=== PATIENT | male | born 1960 | race Caucasian/White ===

== ENCOUNTER 2017-04-14 08:31 | Day surgery (SDC) | payer OTHER ==
[~2017-04-14] VITALS: Ht 172.7 cm
--- NOTE | 2017-04-15 08:09 | OR ---
ADMIT: 04/14/2017 RM/LOC: [facility] MR#: [id number] [address] [id number] ALVIN LEWIS [address] [place] [address] Operative/Delivery Room Report SEX: M AGE: 56 : 1960 SURGERY DATE: 04/14/2017 SURGEON: Mallory Duenas MD ACCOUNTS SUPERVISOR: None. PREOPERATIVE DIAGNOSES: 1. Lumbar spondylosis. 2. Lumbago. POSTOPERATIVE DIAGNOSES: 1. Lumbar spondylosis. 2. Lumbago. PROCEDURE PERFORMED: Bilateral lumbar medial branch block at L3, L4, L5, and S1 levels. INDICATION FOR THE PROCEDURE: The patient is a pleasant gentleman with history of chronic low back pain secondary to above-mentioned diagnoses comes here for planned lumbar medial branch block. ANESTHESIA: Local without sedation. ESTIMATED BLOOD LOSS: Zero. COMPLICATIONS: None immediately evident. DESCRIPTION OF THE PROCEDURE: After the patient was seen in the preoperative area, vital signs were taken. Prior to the procedure, the risks, benefits, and alternative therapies were discussed at length. The patient's consent was obtained and updated. The patient was taken to the fluoroscopy suite and placed on the fluoroscopy table in a prone position. Pressure points were padded to comfort. Monitors were applied and a timeout performed. The lumbosacral area was prepped and draped sterilely using ChloraPrep. C-arm fluoroscopy was then brought in to identify the junction of the pedicular and transverse process. Then lidocaine 1% was applied; approximately 1 mL was used to anesthetize the skin and underlying subcutaneous tissue at bilateral L3, L4, L5 and S1 levels. At each level, a 3.5 inch 22-gauge spinal needle was used. The needle was then advanced to make contact with the superior articular facet at each level, and then needle was placed between the junction ADMIT: 04/14/2017 RM/LOC: [facility] MR#: [id number] [address] [facility] [address] [place] [id number] ALVIN LEWIS [address] [place] [address] Operative/Delivery Room Report SEX: M AGE: 56 : 1960 of the superior articular facet and the transfer process. Then the patient received 0.5 mL of 0.25% Marcaine with approximately 40 mg of Depo-Medrol at each level. The patient had reproduction of his typical pain at each level. Then we moved on to the left side, we did the same procedure. The patient tolerated the procedure well. The patient was brought to the PACU where he recovered nicely without any complication. PLAN: The patient was examined after 20 minutes and had 80% reduction of pain. Range of motion, mainly extension, went from 10 degrees of extension to 20 degrees of extension. Discharge instructions were given. Followup as scheduled. The patient was discharged with a gravel truck driver. Mallory Duenas MD/ laurence JOB #: [id number] CC: Mallory Duenas, Attending Physician Daryl Kaufman, Family Physician
== END 2017-04-14 09:43 | disposition home or self-care (01) ==
LOC: SSS 08:31
DX: G89.29 Other chronic pain (principal); M47.816 Spondylosis without myelopathy or radiculopathy, lumbar region; M48.06 Spinal stenosis, lumbar region; Z98.890 Other specified postprocedural states; Z88.5 Allergy status to narcotic agent; Z88.6 Allergy status to analgesic agent; Z79.1 Long term (current) use of non-steroidal anti-inflammatories (NSAID); Z79.899 Other long term (current) drug therapy

== ENCOUNTER 2017-04-21 09:24 | Day surgery (SDC) | payer OTHER ==
[~2017-04-21] VITALS: Ht 172.7 cm; Wt 95.0 kg
--- NOTE | 2017-04-22 08:22 | OR ---
ADMIT: 04/21/2017 RM/LOC: [facility] MR#: [id number] [address] [address] ALVIN LEWIS [address] [place] [address] Operative/Delivery Room Report SEX: M AGE: 56 : 1960 SURGERY DATE: 04/21/2017 SURGEON: Mallory Duenas MD VETERINARY MEDICINE SCIENTIST: None. PREOPERATIVE DIAGNOSES: 1. Lumbar spondylosis. 2. Lumbago. POSTOPERATIVE DIAGNOSES: 1. Lumbar spondylosis. 2. Lumbago. PROCEDURE PERFORMED: Bilateral lumbar medial branch block at L3, L4, L5, and S1 levels. INDICATION FOR THE PROCEDURE: The patient is a pleasant gentleman with history of chronic low back pain secondary to above-mentioned diagnoses, comes here for planned lumbar medial branch block. ANESTHESIA: Local without sedation. ESTIMATED BLOOD LOSS: Zero. COMPLICATIONS: None immediately evident. DESCRIPTION OF THE PROCEDURE: After the patient was seen in the preoperative area, vital signs were taken. Prior to the procedure, the risks, benefits, and alternative therapies were discussed at length. The patient's consent was obtained and updated. The patient was taken to the fluoroscopy suite and placed on the fluoroscopy table in a prone position. Pressure points were padded to comfort. Monitors were applied and a timeout performed. The lumbosacral area was prepped and draped sterilely using ChloraPrep. C-arm fluoroscopy was then brought in to identify the junction of the pedicular and transverse process. Then lidocaine 1% was applied; approximately 1 mL was used to anesthetize the skin and underlying subcutaneous tissue at bilateral L3, L4, L5 and S1 levels. At each level, a 3.5 inch 22-gauge spinal needle was used. The needle was then advanced to make contact with the superior articular facet at each level, and then needle was placed between the junction of the ADMIT: 04/21/2017 RM/LOC: [facility] MR#: [id number] 26[address] [facility] [address] [place] [id number] ALVIN LEWIS [address] [place] [address] Operative/Delivery Room Report SEX: M AGE: 56 : 1960 superior articular facet and the transfer process. Then the patient received 0.5 mL of 0.25% Marcaine with approximately 40 mg of Depo-Medrol at each level. The patient had reproduction of his typical pain at each level. Then we moved on to the left side we did the same procedure. The patient tolerated the procedure well. The patient was brought to the PACU where he recovered nicely without any complication. PLAN: The patient was examined after 20 minutes and had 80% reduction of pain. Range of motion, mainly extension, went from 0 degrees of extension to 20 degrees of extension. Discharge instructions were given. Followup as scheduled. The patient was discharged with a rickshaw driver. Mallory Duenas MD/ laurence JOB #: [id number] CC: Mallory Duenas, Attending Physician NO FAMILY PHYSICIAN, Family Physician
== END 2017-04-21 11:10 | disposition home or self-care (01) ==
LOC: SSS 09:24
PROC: 3E0U33Z Introduction of Anti-inflammatory into Joints, Percutaneous Approach (ICD-10-PCS; principal; 2017-04-21)
PROC: 3E0U3BZ Introduction of Anesthetic Agent into Joints, Percutaneous Approach (ICD-10-PCS; principal; 2017-04-21)
PROC: BR16ZZZ Fluoroscopy of Lumbar Facet Joint(s) (ICD-10-PCS; principal; 2017-04-21)
DX: G89.29 Other chronic pain (principal); M47.816 Spondylosis without myelopathy or radiculopathy, lumbar region; M46.1 Sacroiliitis, not elsewhere classified; Z88.5 Allergy status to narcotic agent; Z86.010 Personal history of colon polyps; Z98.890 Other specified postprocedural states